=== PATIENT | female | born 1965 | race Caucasian/White ===

== ENCOUNTER 2017-08-08 08:37 | Day surgery (SDC) | payer OTHER ==
[~2017-08-08] VITALS: Ht 167.6 cm; Wt 99.8 kg
[2017-08-08] MEDS ORDERED: fentaNYL 0.05 MG/ML VIAL ONE (10:19)
[2017-08-08] MEDS ORDERED: MIDAZOLAM 2 MG/2 ML VIAL ONE (10:20)
[2017-08-08] MEDS ORDERED: MIDAZOLAM HCL/PF 5 MG/ML VIAL NS SCH (12:00)
[2017-08-08] MEDS ORDERED: fentaNYL 0.05 MG/ML VIAL IVP SCH (12:00)
[2017-08-08] MEDS ORDERED: MIDAZOLAM 2 MG/2 ML VIAL IVP SCH (12:30)
== END 2017-08-08 12:00 | disposition home or self-care (01) ==
LOC: MDS 08:37 → MMU 08:38 → MDS 12:00
PROVIDERS: ATTEND Surgery
DX: K29.80 Duodenitis without bleeding (principal); E78.00 Pure hypercholesterolemia, unspecified; G47.30 Sleep apnea, unspecified; K21.9 Gastro-esophageal reflux disease without esophagitis; Z88.0 Allergy status to penicillin; Z90.49 Acquired absence of other specified parts of digestive tract; Z90.710 Acquired absence of both cervix and uterus; Z90.721 Acquired absence of ovaries, unilateral
CPT/HCPCS: 36415; 43239; 86677; J2250; J3010; J7030; J7120